=== PATIENT | male | born 1970 | race Caucasian/White ===

== ENCOUNTER 2018-10-19 14:17 | Emergency (ER) | payer BC, MEDICARE ==
[~2018-10-19] VITALS: Ht 182.9 cm; Wt 112.5 kg
[~2018-10-19 14:17] MED LIST: OXYACE5T PO
[2018-10-19] MEDS ORDERED: QUET25 (14:49)
[2018-10-19] MEDS ORDERED: METO25 (14:50)
[2018-10-19] MEDS ORDERED: ALPR.25 (14:50)
[2018-10-19] MEDS ORDERED: Prednisone20 MG PO (15:36)
== END 2018-10-19 15:50 | disposition home or self-care (01) ==
LOC: ER 14:17
DX: J20.9 Acute bronchitis, unspecified (principal); M25.551 Pain in right hip; Z79.891 Long term (current) use of opiate analgesic; Z79.899 Other long term (current) drug therapy; Z87.891 Personal history of nicotine dependence
CPT/HCPCS: 71046; 96372; 99283-25; J1885